=== PATIENT | male | born 1970 ===

== ENCOUNTER 2016-06-24 19:47 | Emergency (ER) | payer OTHER ==
[2016-06-24 20:11] VITALS: BP 144/68; PULSE 92; RESP 16; TEMP 98; O2SAT 99
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
--- NOTE | 2016-06-25 12:24 | CARD ---
APPROVED REPORT EKG Measurement Heart [id number] <Conclusion> Normal sinus rhythm Normal ECG
== END 2016-06-24 20:41 | disposition home or self-care (01) ==
LOC: H.ER 19:47
DX: F19.10 Other psychoactive substance abuse, uncomplicated (principal)